=== PATIENT | male | born 2000 | race Caucasian/White ===

== ENCOUNTER 2020-04-14 11:29 | Emergency (ER) | payer MEDICAID, SELFPAY ==
[2020-04-14 11:44] VITALS: BP 119/59; PULSE 83; RESP 18; TEMP 36.7; O2SAT 99
--- NOTE | 2020-04-14 11:48 | ED.GENADULT ---
HPI - General Adult General Chief complaint: Upper Respiratory Infection Stated complaint: Sore throat/cough/congestion Time Seen by Provider: 04/14/20 11:48 Source: patient Mode of arrival: ambulatory Limitations: no limitations History of Present Illness HPI narrative: 19-year-old male patient presents to the [facility] with complaints of cough, congestion for 3 days. Patient states that his boss heard him coughing at work and sent him here for evaluation and requesting COVID testing today. Patient states he was tested in March for COVID it was negative at that time. Patient states the symptoms started 3 days ago. Patient states he has had a nonproductive cough. Denies any chest pain or shortness of breath. Patient denies any fever. Patient states he has had a little bit of congestion and some drainage to the back of his throat. Denies any abdominal pain, nausea, vomiting or diarrhea. Related Data Home Medications Medication Instructions Recorded Confirmed dextroamphetamine-amphetamine 04/14/20 Allergies Allergy/AdvReac Type Severity Reaction Status Date / Time No Known Allergies Allergy Verified 04/14/20 11:37 Review of Systems Review of Systems: Narrative: CONSTITUTIONAL: Denies fever, chills, or sweats. EYES: Denies visual changes, redness, or discharge. ENT: Positive rhinorrhea, congestion, sore throat, denies otalgia. CARDIOVASCULAR: Denies chest pain, palpitations, or edema. RESPIRATORY: Positive nonproductive cough, denies dyspnea. GASTROINTESTINAL: Denies abdominal pain, nausea, vomiting, or diarrhea. GENITOURINARY: Denies dysuria or hematuria. SKIN: Denies rash or itching. MUSCULOSKELETAL: Denies back pain, joint pain, or myalgia. NEUROLOGIC: Denies headache, numbness, or weakness. PSYCHIATRIC: Denies anxiety or depression. PMFSH Comments At the time of my signature I agree with nursing past medical history, surgical, social, and family history. There is no relevant family history pertinent to the presenting complaint. Exam Narrative: Exam Narrative: GENERAL: Well-appearing, well-nourished, and in no acute distress. HEAD: Normocephalic, atraumatic. No tenderness noted to frontal and maxillary sinuses on palpation EYES: PERRLA and EOMI. ENT: Nares clear, no rhinorrhea or epistaxis. Mucous membranes moist. Posterior pharynx with some erythema but no tonsil enlargement no exudates or lesions present. Bilateral TMs are clear with no erythema or foreign bodies to the canals. NECK: Supple. No lymphadenopathy CHEST: Clear to auscultation. No respiratory distress. Patient able talk clear complete sentences. No tripoding noted. HEART: Regular rate and rhythm. No murmur heard. Normal peripheral pulses. ABDOMEN: Soft, nontender, nondistended, normal active bowel sounds. EXTREMITIES: Normal range of motion. No edema. SKIN: Warm, dry, no rash. NEURO: No focal deficits. Alert and oriented x3. Course Vital Signs Vital signs: Vital Signs Temperature 36.7 C 04/14/20 11:44 Pulse Rate 83 04/14/20 11:44 Respiratory Rate 18 04/14/20 11:44 Blood Pressure 119/59 L 04/14/20 11:44 Pulse Oximetry 99 04/14/20 11:44 Temperature 36.7 C 04/14/20 11:44 Pulse Rate 83 04/14/20 11:44 Respiratory Rate 18 04/14/20 11:44 Blood Pressure 119/59 L 04/14/20 11:44 Pulse Oximetry 99 04/14/20 11:44 Vital signs reviewed. Medical Decision Making Differential Diagnosis Differential Diagnosis: Differential diagnosis: Allergic rhinitis, chronic sinusitis, tonsillitis, acute sinusitis, infectious mononucleosis, seasonal influenza, pertussis, diphtheria, meningococcal disease, viral syndrome, viral bronchitis, RSV, COVID-19 Discussed with patient that his strep test today is negative. Discussed with him that since he is having sore throat, cough, congestion and these are symptoms of COVID and his work is requiring COVID test we will go ahead and send him for COVID testing. Discussed with him they will
--- NOTE | 2020-04-14 12:42 | PC.NURSE ---
at discharge, 1222, pt requested new fax to grandmothers phone, stated phone number used at registration was not a good contact number, grandmother ( shellie man ) [phone]. new contact information was faxed.
--- NOTE | 2020-04-18 15:12 | PC.NURSE ---
1508- Rx called into [facility], Allergies updated, Zpak take as directed, no refills, per Torrey Bowden.
== END 2020-04-14 12:22 | disposition home or self-care (01) ==
PROVIDERS: Emergency Provider Nurse Practitioner Family
DX: J06.9 Acute upper respiratory infection, unspecified (principal); R05 Cough; Z20.828 Contact with and (suspected) exposure to other viral communicable diseases
CPT/HCPCS: 87081; 87147; 87880; 99203; G0463

== ENCOUNTER 2025-01-22 08:34 | Emergency (ER) | payer MEDICAID, SELFPAY ==
[2025-01-22 08:42] VITALS: BP 160/84; PULSE 80; RESP 20; TEMP 36.9; O2SAT 98
--- OUTSIDE RECORDS SUMMARY | 2025-01-22 08:44 | XMS_ITS | Clinical Summary ---
Author Organization [facility] Address [address] [place] [address] Care Team Providers Care Flight Attendant Name Role Phone Unavailable Primary Care Provider Unavailabl e Social History Tobacco Use Types Packs/Day Years Used Date Smoking Tobacco: Never Assessed Sex and Gender Information Value Date Recorded Sex Assigned at Not on file Legal Sex Male 1:46 PM PST Gender Identity Not on file Sexual Orientation Not on file Plan of Treatment Health Maintenance Due Date Last Done Comments Dental Oral Exam 2000 Dental Prophylaxis 2000 Dental X-Ray: Bitewings 2000 Dental X-Ray: Full Mouth 2000 Dental X-Ray: Panoramic 08/13/2027 08/12/2024, 08/11 Meningococcal B Vaccine Aged Out No l onger eligible based on patient's age to complete this topic Procedures Procedure Name Priority Date/Time Associated Diagnosis Comments PANORAMIC RADIOGRAPHIC IMAGE Routine 08/11/2024 4:00 PM ARTIST CONSULTANT from Last 3 Months or Most Recently Relevant to Health Maintenance Insurance [facility] [place]
--- OUTSIDE RECORDS SUMMARY | 2025-01-22 08:44 | XMS_ITS ---
Author Organization [facility] Address [address] [place] [address] Care Team Providers Care Director Of Residential Services Name Role Phone Meghann Erwin [phone] REASON FOR VISIT new eval Encounters Encounter Location Date Provider Diagnosis [address] [place] [address] 07/31/2023 Meghann Erwin Plan Of Treatment No Information Progress Notes * AISHAGabrielDOB: [birth year] (24 yo M)Acc No.[id number]:07/31/2023 UNLOCKED PROGRESS NOTE Patient: Gabriel JOSE Provider: Jessica Erwin DNP, APRN, PMHNP-BC :2000 A ge:23 Y S ex:Male Date:07/31/2023 Address:[address] , [address], [place], [place]-[address] Subjective: * Chief Complaints: * 1 . New eval. * Medical History: Objective: * Vitals: Assessment: Plan: * Treatment: * * Electronic signature of Shima Cool [id number] on 01/22/2025 at 08:43 AM CDT Sign off status: Pending * Provider: Jessica Erwin DNP, APRN, PMHNP-BC Date: 09/30/2022 Generated for Printing/Faxing/eTransmitting on: 01/22/2025 08:43 AM CDT
--- OUTSIDE RECORDS SUMMARY | 2025-01-22 08:44 | XMS_ITS | Patient Health Record ---
Author Organization [facility] Address [address] [place] [address] Support Name Relationship Address Phone Gabriel Harley Guarantor Unknown [phone] Reason For Referral No Information Plan Of Treatment No Information Insurance Providers Payer Name Payer Address Payer Phone Subscriber Number Group Number Insured Name Patient Relationship to Insured Coverage Start Date Coverage End Date [facility] [address] [place] [address] [id number] Gabriel Harley Self - patient is the insured 3
--- OUTSIDE RECORDS SUMMARY | 2025-01-22 08:44 | XMS_ITS | Encounter Summary ---
Author Organization [facility] Address [address] [place] [address] Care Team Providers Care Secondary School Teacher Librarian Name Role Phone Unavailable Primary Care Provider Unavailabl e Prior Encounters Date Type Department Care Team Description 08/11/2024 4:00 PM FOOD AND NUTRITION TEACHER Office Visit [facility] [address] [place] [address] Ju Lares DMD Dental caries, unspecified (Primary Dx) Plan of Treatment Not on file Procedures Procedure Name Priority Date/Time Associated Diagnosis Comments PANORAMIC RADIOGRAPHIC IMAGE Routine 08/11/2024 4:00 PM FOOD AND NUTRITION TEACHER LIMITED ORAL EVALUATION - PROBLEM FOCUSED Routine 08/11/2024 4:00 PM FOOD AND NUTRITION TEACHER Visit Diagnoses Diagnosis Start Date Dental caries, unspecified 08/11/2024 Insurance [facility] [place] [facility] [place] [address]
--- NOTE | 2025-01-22 09:16 | PC.NURSE ---
pharmacy called for missing medication, she states she will send it up.
--- NOTE | 2025-01-22 09:25 | ED_ITS ---
HPI - Dental/Oral General Chief complaint: Dental/Oral <Wesly Iain Hayden III, DO - Last Filed: 01/22/25 17:54> Stated complaint: R. side tooth pain <Wesly Iain Hayden III, DO - Last Filed: 01/22/25 17:54> Time Seen by Provider: 01/22/25 08:40 <Wesly Iain Hayden III, DO - Last Filed: 01/22/25 17:54> History of Present Illness HPI Narrative: Pt complains of right lower posterior molar pain. Pt on day 3 of clindamycin and taking Ibuprofen without relief. Pt has dental appointment for extraction in early February. Pt requests dental block. Pt denies fever. <Wesly Iain Hayden III, DO - Last Filed: 01/22/25 17:54> Related Data Home medications: Home Medications Medication Instructions Recorded Confirmed Last Taken Type dextroamphetamine-amphetamine 15 04/14/20 Unknown History mg tablet <Wesly Iain Hayden III, DO - Last Filed: 01/22/25 17:54> Allergies/adverse reactions: Allergies Allergy/AdvReac Type Severity Reaction Status Date / Time amoxicillin (From Augmentin) Allergy Severe anaphylaxis Verified 01/22/25 08:48 clavulanic acid (From Allergy Severe anaphylaxis Verified 01/22/25 08:48 Augmentin) Penicillins Allergy Swelling Verified 01/22/25 08:48 of Lip/Tongue/Throat <Wesly Iain Hayden III, DO - Last Filed: 01/22/25 17:54> Review of Systems Review of Systems: All systems reviewed & are unremarkable except as noted in HPI and below <Wesly Iain Hayden III, DO - Last Filed: 01/22/25 17:54> Exam Const: General: healthy appearing and no acute distress <Wesly Iain Hayden III, DO - Last Filed: 01/22/25 17:54> Nutritional Appearance: well nourished <Wesly Iain Hayden III, DO - Last Filed: 01/22/25 17:54> Orientation/consciousness: patient oriented x3 <Wesly Iain Hayden III, DO - Last Filed: 01/22/25 17:54> Limitations: no limitations <Wesly Iain Hayden III, DO - Last Filed: 17:54> HENMT: Mouth: Yes Normal oral and palatal mucosa present <Wesly Iain Hayden III, DO - Last Filed: 01/22/25 17:54> Teeth and gingiva: abnormal tooth and associated gingiva (some mild swelling but no abscess around post 3rd lower right molar) <Wesly Iain Hayden III, DO - Last Filed: 01/22/25 17:54> Throat: posterior oropharynx normal <Wesly Iain Hayden III, DO - Last Filed: 01/22/25 17:54> Neck: Neck: normal visual inspection and no lymphadenopathy <Wesly Iain Hayden III, DO - Last Filed: 01/22/25 17:54> Course Vital Signs Vital signs: Vital Signs Temperature 98.4 F 01/22/25 08:42 Pulse Rate 80 01/22/25 08:42 Respiratory Rate 20 01/22/25 08:42 Blood Pressure 160/84 H 01/22/25 08:42 Pulse Oximetry 98 01/22/25 08:42 Oxygen Delivery Room Air 01/22/25 08:42 Temperature 98.4 F 01/22/25 08:42 Pulse Rate 80 01/22/25 08:42 Respiratory Rate 20 01/22/25 08:42 Blood Pressure 160/84 H 01/22/25 08:42 Pulse Oximetry 98 01/22/25 08:42 Oxygen Delivery Room Air 01/22/25 08:42 <Wesly Iain Hayden III, DO - Last Filed: 01/22/25 17:54> Vital Signs Temperature 98.4 F 01/22/25 08:42 Pulse Rate 80 01/22/25 08:42 Respiratory Rate 20 01/22/25 08:42 Blood Pressure 160/84 H 01/22/25 08:42 Pulse Oximetry 98 01/22/25 08:42 Oxygen Delivery Room Air 01/22/25 08:42 Temperature 98.4 F 01/22/25 08:42 Pulse Rate 80 01/22/25 08:42 Respiratory Rate 20 01/22/25 08:42 Blood Pressure 160/84 H 01/22/25 08:42 Pulse Oximetry 98 01/22/25 08:42 Oxygen Delivery Room Air 01/22/25 08:42 <Naomy Merino, STOVE REFINISHER - Last Filed: 01/22/25 09:45> Procedures Nerve Block Nerve Block 1: Nerve block date: 01/22/25 <Naomy J. May, STOVE REFINISHER - Last Filed: 01/22/25 09:45> Nerve block time: 09:45 <Naomy Spangler January,N - Last Filed: 01/22/25 09:45> Time out performed: Yes <Naomy Spangler January,N - Last Filed: 01/22/25 09:45> Local Anesthetic: bupivacaine 0.5% <Naomy Spangler January,N - Last Filed: 01/22/25 09:45> Amount of anesthesia used (mL): 4 <Naomy Spangler January, STOVE REFINISHER - Last Filed: 01/22/25 09:45> Side: right <Naomy Spangler January, STOVE REFINISHER - Last Filed: 01/22/25 09:45> Intraoral Nerve Block: inferior alveolar <Naomy Spangler January,N - Last Filed: 01/22/25 09:45> Procedure Successful: Yes <Naomy Spangler January,N - Last Filed: 01/22/25 09:45> Patient Tolerated Procedure: well <Naomy Spangler January,N - Last Filed: 01/22/25 09:45> Complications: none <Naomy Spangler January,N - Last Filed: 01/22/25 09:45> MDM - Dental/Oral MDM Narrative Medical decision making narrative: Pt has dental paion and requests dental block performed by naomy Merino. will gie a few norco for pain. pt on clindamycine and buprofen. <Wesly Iain Hayden III, DO - Last Filed: 01/22/25 17:54> Discharge Plan Discharge Clinical Impression: Toothache, Dental caries <Wesly Iain Hayden III, DO - Last Filed: 01/22/25 17:54> Patient Disposition: Home <Wesly Iain Hayden III, DO - Last Filed: 01/22/25 17:54> Condition: Improved <Wesly Iain Hayden III, DO - Last Filed: 01/22/25 17:54> Instructions: Antibiotic Form, Toothache (ED) <Wesly Iain Hadyen III, DO - Last Filed: 01/22/25 17:54> Additional Instructions: continue antibiotics and ibuprofen. will add norco. follow up with dentist vu. <Wesly Iian Hayden III, DO - Last Filed: 01/22/25 17:54> Patient Language: Slovenian <Wesly Hayden III, DO - Last Filed: 01/22/25 17:54> Prescriptions: New hydrocodone-acetaminophen 5-325 mg tablet 1 tablet PO Q6H PRN (Reason: pain) Qty: 10 0RF No Action dextroamphetamine-amphetamine 15 mg tablet benzonatate 150 mg capsule 150 mg PO TID PRN (Reason: cough) Qty: 20 0RF albuterol sulfate [Ventolin HFA] 90 mcg/actuation HFA aerosol inhaler 2 puff INHALATION .Q4 hours PRN (Reason: cough) Qty: 18 0RF <Wesly Hayden III, DO - Last Filed: 01/22/25 17:54> Follow-up/Referrals: UNKNOWN,DOCTOR [Primary Care Provider] - <Wesly Hayden III, DO - Last Filed: 01/22/25 17:54> Stand Alone Forms: Work/School Release IP <Wesly Hayden III, DO - Last Filed: 01/22/25 17:54>
== END 2025-01-22 10:14 | disposition home or self-care (01) ==
PROVIDERS: Emergency Provider Emergency Medicine
DX: K02.9 Dental caries, unspecified (principal)
CPT/HCPCS: 64400; 99283

== ENCOUNTER 2025-05-24 05:12 | Emergency (ER) | payer OTHER, SELFPAY ==
[2025-05-24 05:14] VITALS: BP 154/105; PULSE 78; RESP 20; TEMP 36.4; O2SAT 100
[2025-05-24] MEDS: LIDOCAINE 1% LOCAL INJ 10 ML VIAL INFILTRATE (05:30)
--- NOTE | 2025-05-24 05:33 | ED_ITS ---
HPI - Dental/Oral General Chief complaint: Dental/Oral Stated complaint: R lower dental pain Time Seen by Provider: 05/24/25 05:17 History of Present Illness HPI Narrative: Patient is a 24-year-old male who presents emergency department this evening complaining of a right wisdom tooth fracture requesting a dental block. States that his right lower wisdom tooth is fractured. Patient states that the has an appointment with his dentist in 2 weeks and could not sleep tonight due to the pain. States that he has had a cell block in the past which has worked. Denies any fevers or chills. No additional symptoms or concerns at this time. Related Data Home Medications ?Medication ?Instructions ?Recorded ?Confirmed ?Last Taken ?Type dextroamphetamine-amphetamine 15 04/14/20 Unknown Hi story mg tablet Allergies Allergy/AdvReac Type Severity Reaction Status Date / Time amoxicillin (From Augmentin) Allergy Severe anaphylaxis Verified 01/22/25 08:48 clavulanic acid (From Allergy Severe anaphylaxis Verified 05/24/25 05:17 Augmentin) Penicillins Allergy Swelling Verified 05/24/25 05:17 of Lip/Tongue/Throat Review of Systems Review of Systems: All systems are reviewed and are negative unless stated otherwise in the HPI. Exam Narrative: General: Alert, awake, afebrile, in no acute distress. HEENT: PERRL, no rhinorrhea, no post nasal drip, oropharynx clear, fractured right lower wisdom tooth. Neck: Trachea midline, no JVD, no lymphadenopathy. Cardiovascular: Regular rate and rhythm, no murmurs, rubs or gallops, no peripheral edema. Respiratory: Clear to auscultation bilaterally, no tachypnea, no wheezing, no rhonchi, no rubs, no respiratory distress. Abdomen: Soft, nontender, nondistended, no rebound, no guarding, no peritoneal signs. Musculoskeletal: No joint swelling or deformity, normal muscle tone. Skin: No rashes or petechia, no signs of infection. Psychiatric: Alert and oriented, normal behavior and judgment for situation. Neurological: Alert and oriented to person, place, and time. Follows all commands. No focal deficits, speech is clear and fluent. Course Vital Signs Vital signs: Vital Signs Temperature 97.5 F L 05/24/25 05:14 Pulse Rate 78 05/24/25 05:14 Respiratory Rate 20 05/24/25 05:14 Blood Pressure 154/105 H 05/24/25 05:14 Pulse Oximetry 100 05/24/25 05:14 Oxygen Delivery Room Air 05/24/25 05:14 Temperature 97.5 F L 05/24/25 05:14 Pulse Rate 78 05/24/25 05:14 Respiratory Rate 20 05/24/25 05:14 Blood Pressure 154/105 H 05/24/25 05:14 Pulse Oximetry 100 05/24/25 05:14 Oxygen Delivery Room Air 05/24/25 05:14 Procedures Nerve Block Nerve Block 1: Nerve block date: 05/24/25 Nerve block time: 05:46 Time out performed: Yes Local Anesthetic: lidocaine 1% and bupivacaine 0.5% Amount of anesthesia used (mL): 2 Side: right Intraoral Nerve Block: inferior alveolar Procedure Successful: Yes Patient Tolerated Procedure: well and no complications Complications: none MDM - Dental/Oral MDM Narrative Medical decision making narrative: The patient was evaluated by myself in the emergency department. History is obtained from patient who is an independent historian and physical exam was performed. External medical records were reviewed at this time. Inferior alveolar dental block was successfully performed as detailed under procedural note. Differential diagnosis considerations include dental caries, dental abscess, fractured tooth. Comorbidities impacting this visit include none. I have evaluated and discussed social determinants of health with the patient that could potentially impact subsequent diagnosis and treatment plans. On repeat assessment of the patient, reevaluation revealed that the patient is doing well and is in no acute distress. Patient symptoms have improved since he arrived to our emergency department. Repeat vital signs were all reviewed and noted to be stable. Differential diagnosis and treatment plan were discussed with the patient at bedside. Patient agrees with discussion and after shared medical decision making agrees with discharge. All questions were answered to the patient's satisfaction. Patient will follow up with his dentist as scheduled for his upcoming appointm ent within the next 2 weeks. Scripts for [place] and clindamycin was sent to patient's pharmacy to take as prescribed until his dentist appointment. Patient was provided with strict return precautions and instructed to return to the emergency department if any new or worsening symptoms develop. The patient was discharged in stable condition. Discharge Plan Discharge Clinical Impression: Fracture of tooth, Dental caries Patient Disposition: Home Condition: Improved Instructions: Antibiotic Form, Toothache (ED) Additional Instructions: Please follow-up with your dentist as scheduled for upcoming appointment. Use the prescribed pain medication as needed for pain. Return to ED if any new or worsening symptoms develop. Patient Language: Indonesian Prescriptions: New hydrocodone-acetaminophen 5-325 mg tablet 1 tablet PO Q8H PRN (Reason: pain) Qty: 10 0RF clindamycin HCl [Cleocin HCl] 150 mg capsule 450 mg PO Q8H 7 Days Qty: 63 0RF No Action dextroamphetamine-amphetamine 15 mg tablet benzonatate 150 mg capsule 150 mg PO TID PRN (Reason: cough) Qty: 20 0RF albuterol sulfate [Ventolin HFA] 90 mcg/actuation HFA aerosol inhaler 2 puff INHALATION .Q4 hours PRN (Reason: cough) Qty: 18 0RF hydrocodone-acetaminophen 5-325 mg tablet 1 tablet PO Q6H PRN (Reason: pain) Qty: 10 0RF Follow-up/Referrals: UNKNOWN,DOCTOR [Non-Staff] - 1 Week Stand Alone Forms: Work/School Release IP Time of Disposition: 05:32
[2025-05-24] MEDS: IBUPROFEN 400 MG TABLET PO (05:54)
== END 2025-05-24 05:57 | disposition home or self-care (01) ==
LOC: ANHED 05:33
PROVIDERS: Emergency Provider Emergency Medicine
DX: S02.5XXA Fracture of tooth (traumatic), initial encounter for closed fracture (principal); K02.9 Dental caries, unspecified; X58.XXXA Exposure to other specified factors, initial encounter
CPT/HCPCS: 64400; 99283; A9270; J2003